=== PATIENT | female | born 2000 | race Two or more races ===

== ENCOUNTER 2023-11-13 07:43 | Inpatient (IN) | payer MEDICAID, OTHER ==
[~2023-11-13] VITALS: Ht 154.9 cm; Wt 87.0 kg
[2023-11-13 07:59] VITALS: PULSE 101; RESP 18; O2SAT 98
[2023-11-13] MEDS: SODIUM CHLORIDE 0.9% 1,000 ML IV ONE (08:26)
[2023-11-13] MEDS: ONDANSETRON HCL 4 MG/2 ML VIAL IV ONE ×2 (08:26→12:31)
[2023-11-13 08:28] LABS: Basophils # (auto) 0 10 ^3/uL (0-0.2); Basophils % (auto) 0.3 % (0.0-2.0); Eosinophils # (auto) 0.3 10 ^3/uL (0-0.8); Eosinophils % (auto) 2.1 % (0.0-7.0); Hemoglobin 13.8 g/dL (12.2-16.2); Lymphocytes # (auto) 1.4 10 ^3/uL (0.4-5.4); Lymphocytes % (auto) 10.6 % (10.0-50.0); Mean Corpuscular Hgb Conc. 34.5 g/dL (32.0-36.0); Mean Corpuscular Volume 81.3 fL (80.0-100.0); Monocytes # (auto) 0.6 10 ^3/uL (0-1.3); Monocytes % (auto) 4.5 % (0.0-12.0); Neutrophils # (auto) 10.6 10 ^3/uL (1.6-8.6); Neutrophils % (auto) 82.5 % (37.0-80.0); Red Blood Cells 4.92 10^6/uL (4.0-5.20); Red Cell Distribution Width 14.7 % (11.8-14.3); White Blood Cell 12.9 10^3/uL (4.4-10.8)
[2023-11-13 08:39] LABS: Chloride 109 mmol/L (98-107); Potassium 3.9 mmol/L (3.5-5.1); Sodium 140 mmol/L (136-145)
[2023-11-13 08:40] LABS: Anion Gap 6 (5-15); Calcium 9.2 mg/dL (8.7-10.4); Carbon Dioxide 25 mmol/L (20-30)
[2023-11-13 08:45] LABS: BUN/Creatinine Ratio 11.1 (10.0-20.0); Blood Urea Nitrogen 7 mg/dL (9-23); Glucose 113 mg/dL (74-106)
[2023-11-13 09:02] LABS: Urine Bacteria FEW /hpf (None Seen); Urine Blood Negative /uL (Negative); Urine Clarity Turbid (Clear); Urine Color Yellow (Yellow); Urine Mucus FEW (None Seen); Urine Protein, UAD 1+ (Negative); Urine Specific Gravity 1.031 (1.001-1.035); Urine Urobilinogen Normal (Negative); Urine WBC 69 /hpf (0 - 5); Urine pH 5.5 (5.0-9.0)
[2023-11-13] MEDS: levoFLOXacin 500MG 100 ML IV ONE (09:41)
[2023-11-13 11:18] VITALS: BP 115/83; PULSE 98; RESP 18; TEMP 98.2; O2SAT 98
[2023-11-13] MEDS ORDERED: NITROGLYCERIN 0.4 MG SL TAB SL PRN (12:15)
[2023-11-13] MEDS ORDERED: ONDANSETRON HCL 4 MG/2 ML VIAL IV PRN (12:15)
[2023-11-13] MEDS ORDERED: DOCUSATE SOD 100 MG CAP PO PRN (12:15)
[2023-11-13] MEDS ORDERED: MORPHINE SULFATE INJ 2 MG/ml SYRG IV PRN (12:15)
[2023-11-13] MEDS ORDERED: SODIUM CHLORIDE 0.9% 1,000 ML IV SCH (12:15)
[2023-11-14] MEDS ORDERED: levoFLOXacin 500MG 100 ML IV SCH (10:00)
== END 2023-11-13 14:21 | disposition left against medical advice (07) | DRG 720 ==
LOC: ER 07:43 → OVERFLOW 12:13
PROVIDERS: ADMIT Nurse Practitioner Family; ATTEND Nurse Practitioner Family
DX: A41.59 Other Gram-negative sepsis (principal); N30.00 Acute cystitis without hematuria; Z53.29 Procedure and treatment not carried out because of patient's decision for other reasons; Z88.0 Allergy status to penicillin; Z90.49 Acquired absence of other specified parts of digestive tract
CPT/HCPCS: 36415; 74176; 80048; 81001; 84702; 85025; G0378; J1956; J2405